=== PATIENT | male | born 1960 ===

== ENCOUNTER 2016-12-30 20:19 | Emergency (ER) | payer SELFPAY ==
--- NOTE | 2016-12-30 21:42 | UC ---
Laceration HPI - HPI Summary HPI Summary: 56 yo male lacerated his left thumb with a knife trying to open a can of clams He is right handed occurred a couple of hours ago on ASA and plavix - History Of Current Complaint Chief Complaint: UCLaceration Stated Complaint: LEFT THUMB LACERATION Time Seen by Provider: 12/30/16 21:34 Hx Obtained From: Patient Laceration Location: Finger Mechanism Of Injury: Sharp Trauma Onset/Duration: Sudden Onset Severity: Mild Pain Intensity: 3 Pain Scale Used: 0-10 Numeric Aggravating Factors: Nothing Related History: Dominant Hand Right - Allergies/Home Medications Allergies/Adverse Reactions: Allergies Allergy/AdvReac Type Severity Reaction Status Date / Time Spironolactone Allergy Severe THIROIDITIS Verified 12/30/16 21:06 IVP DYE Allergy Severe Anaphylatic Uncoded 12/30/16 21:06 Shock Home Medications: Home Medications Aspirin Low Dose CHEW TAB* [Aspirin Low Dose TAB*] 81 mg PO DAILY 12/30/16 [ History Confirmed 12/30/16] Atorvastatin* [Lipitor*] 80 mg PO DAILY 12/30/16 [History Confirmed 12/30/16] Clopidogrel TAB* [Plavix TAB*] 75 mg PO DAILY 12/30/16 [History Confirmed ] Docusate CAP* [Colace Cap*] 100 mg PO BID 12/30/16 [History Confirmed 12/30/16] Gabapentin CAP(*) [Neurontin 400 mg CAP(*)] 800 mg PO BID 12/30/16 [History Confirmed 12/30/16] Oxycodone TAB(NF) [Oxycodone HCl 10 MG] 20 mg PO Q6H 12/30/16 [History Confirmed 12/30/16] Ranitidine HCl [Zantac 75] 0.25 mg PO DAILY 12/30/16 [History Confirmed 12/30/16 ] Sacubitril-Valsartan [Entresto 24-26 mg] 1 tab PO BID 12/30/16 [History Confirmed 12/30/16] Senna TAB* [Senokot TAB*] 1 tab PO DAILY 12/30/16 [History Confirmed 12/30/16] Sotalol TAB* [Betapace 80 MG TAB*] 80 mg PO BID 12/30/16 [History Confirmed ] PMH/Surg Hx/FS Hx/Imm Hx Endocrine History: Dyslipidemia Cardiovascular History: Cardiac Disease, Hypertension, Myocardial Infarction - Surgical History Surgical History: Yes Surgery Procedure, Year, and Place: SPINAL SURGERY THROUGH ANTERIOR NECK. PACEMAKER. BRAIN SURGERY - Family History Known Family History: Positive: Cardiac Disease, Hypertension - Social History Alcohol Use: Rare Substance Use Type: None Smoking Status (MU): Heavy Every Day Tobacco Smoker Type: Cigarettes Amount Used/How Often: 1 PPD Have You Smoked in the Last Year: Yes Household Exposure Type: Cigarettes - Immunization History Most Recent Tetanus Shot: WITHIN 5 YEARS PT STATES Review of Systems Constitutional: Negative Skin: Negative Eyes: Negative ENT: Negative Respiratory: Negative Cardiovascular: Negative Gastrointestinal: Negative Genitourinary: Negative Motor: Negative Neurovascular: Negative Musculoskeletal: Arthralgia, Myalgia Neurological: Negative Psychological: Negative All Other Systems Reviewed And Are Negative: Yes Physical Exam Triage Information Reviewed: Yes Appearance: Well-Appearing, No Pain Distress, Well-Nourished Vital Signs: Initial Vital Signs Temp 97.6 F 12/30/16 21:14 Pulse 56 12/30/16 21:14 Resp 18 12/30/16 21:14 BP 90/55 12/30/16 21:14 Pulse Ox 97 12/30/16 21:14 Vital Signs Reviewed: Yes ENT: Positive: Hearing grossly normal. Negative: Nasal congestion, Nasal drainage, Trismus, Muffled/hoarse voice Neck: Negative: Supple Respiratory: Positive: Lungs clear, Normal breath sounds, No respiratory distress Cardiovascular: Positive: RRR, No Murmur Musculoskeletal: Positive: ROM Intact, No Edema Neurological: Positive: Alert Psychological Exam: Normal Skin Exam: Other - lac thumb Laceration Repair - Laceration Repair 1 Description: Linear Laceration Size After Repair: Length (cm) - 1.3, Width (mm) - 2, Depth (mm) - 3 Modified For Repair: No Type Injection: Digital Anesthesia Used: 2.0% Lido Cleansing Completed Via Routine Prep: Yes Irrigation With Pressure Irrigation Device: Yes Closure Method: Single Layer Suture Of: Skin Suture Type: Nylon - 5 5-0 nylon Laceration Course/Dx - Differential Dx - Laceration/Wound Provider Diagnoses: left thumb laceration Discharge - Discharge Plan Condition: Stable Disposition: HOME Patient Education Materials: Care For Your Stitches (ED), Laceration (ED) Additional Instructions: gently clean twice daily with soap and water thin film of antibotic ointment bandaid after a few days you may keep it open to air periodically recheck for concerns of infection sutures out in 7-10 days Images Hands: 1 - 1.3 cm lac
[2016-12-30] MEDS ORDERED: Lidocaine 2% PF * 5 ML VIAL INJ ONE (21:46)
== END 2016-12-30 22:25 | disposition home or self-care (01) ==
LOC: UCCORT 20:19
DX: S61.012A Laceration without foreign body of left thumb without damage to nail, initial encounter (principal); Z79.82 Long term (current) use of aspirin; Z79.02 Long term (current) use of antithrombotics/antiplatelets; F17.210 Nicotine dependence, cigarettes, uncomplicated; W26.0XXA Contact with knife, initial encounter; Y93.G1 Activity, food preparation and clean up; Y92.9 Unspecified place or not applicable; I10 Essential (primary) hypertension; I25.2 Old myocardial infarction; Z95.0 Presence of cardiac pacemaker
CPT/HCPCS: 12001; 99202; G0463